=== PATIENT | female | born 1980 | race Caucasian/White ===

== ENCOUNTER 2019-10-28 10:38 | Emergency (ER) | payer BC ==
[~2019-10-28] VITALS: Ht 167.6 cm; Wt 103.9 kg
[2019-10-28 10:43] VITALS: BP 138/88; Ht 167.6 cm; Wt 103.9 kg
== END 2019-10-28 11:24 | disposition home or self-care (01) ==
LOC: ED 10:38
DX: J32.9 Chronic sinusitis, unspecified (principal)

== ENCOUNTER 2020-03-12 06:28 | Emergency (ER) | payer OTHER ==
[~2020-03-12] VITALS: Ht 167.6 cm; Wt 90.7 kg
[2020-03-12 06:38] VITALS: Ht 167.6 cm; Wt 90.7 kg
[2020-03-12 07:36] LABS: microscopic required? NO
[2020-03-12 08:21] LABS: UA SPECIFIC GRAVITY >=1.030 (1.005-1.035); urine erythrocyte NEGATIVE (NEGATIVE)
[2020-03-12 08:28] LABS: AMPHETAMINE QUAL UR NONE DETECTED (See below)
[2020-03-12 08:29] LABS: BASOPHIL % 0.4 % (0-2); PLATELET COUNT 346 x10^3mcL (130-400)
[2020-03-12 08:30] LABS: CALCIUM 8.7 mg/dL (8.5-10.1); CARBON DIOXIDE 23.9 mmol/L (21-32); CHLORIDE SERUM 104 mmol/L (98-107); CREATININE SERUM 0.7 mg/dL (0.6-1.0); GFR1 > 60 mL/min; GLUCOSE SERUM 103 mg/dL (74-106); SODIUM SERUM 139 mmol/L (136-145)
[2020-03-12 08:35] LABS: ALBUMIN 3.7 g/dL (3.4-5.0); ALKALINE PHOSPHATASE 73 U/L (46-116); ALT/SGPT 29 U/L (14-59); AST/SGOT 17 U/L (15-37); BILIRUBIN TOTAL 0.2 mg/dL (0.20-1.00); C REACTIVE PROTEIN 1.1 mg/dL (<=0.9); LACTIC DEHYDROGENASE (LDH) 191 U/L (100-190); TOTAL PROTEIN, SERUM 7.7 g/dL (6.4-8.2)
[2020-03-12 10:04] VITALS: BP 135/86
== END 2020-03-12 10:04 | disposition home or self-care (01) ==
LOC: ED 06:28
PROVIDERS: Specialist
DX: R25.1 Tremor, unspecified (principal); R11.0 Nausea; J45.909 Unspecified asthma, uncomplicated; Z20.828 Contact with and (suspected) exposure to other viral communicable diseases; Z88.6 Allergy status to analgesic agent
CPT/HCPCS: 82962; 83880; 87804; Q0092; U0003-CS